=== PATIENT | female | born 1950 | race Caucasian/White ===

== ENCOUNTER 2021-09-24 13:46 | Day surgery (SDC) | payer OTHER ==
[2021-09-21 11:41] LABS: Absolute Lymphocytes (CBC) 1.4 K/uL (0.7-4.9); Basophils % 0.8 % (0-1.3); Hematocrit 38.1 % (36.0-45.0); Lymphocytes % 19.7 % (15.3-44.8); MPV 6.9 fL (7.6-11.3); RBC Red Blood Cell Count 4.18 M/uL (3.86-4.86)
[2021-09-21 11:50] LABS: Protime INR 1.04
[2021-09-21 11:55] LABS: Potassium 4.1 mmol/L (3.5-5.1)
--- NOTE | 2021-09-21 11:59 | RAD REPORT ---
EXAM DESCRIPTION: Jesús Bourgeois And Sammie (2 Views)09/21/2021 11:50 am CLINICAL HISTORY: Preop for cardiac catheterization. Hypertension COMPARISON: None FINDINGS: The lungs are mildly hyperaerated. The lungs appear clear of acute infiltrate. The heart is normal size IMPRESSION: No acute abnormalities displayed
[~2021-09-24 13:46] MED LIST: NA CHLORIDE 0.9% 500 ML ONE
[2021-09-24] MEDS ORDERED: HEPA 1000U/500MLS 2,000 UNIT/1,000 ML BAG IV ONE (13:57)
[2021-09-24] MEDS ORDERED: MIDAZOLAM HCL 2 MG/2 ML INJ ONE (15:21)
[2021-09-24] MEDS ORDERED: HEPARIN 5000 UNIT/ML 1 ML VIAL ONE (15:22)
[2021-09-24] MEDS ORDERED: FENTANYL CITR 100 MCG/2 ML ONE (15:22)
[2021-09-24] MEDS ORDERED: VERAPAMIL HCL 10 MG/4 ML VIAL IV ONE (15:22)
[2021-09-24] MEDS ORDERED: ATROPINE SULF 1 MG/10 ML SYR IV ONE (15:22)
[2021-09-24] MEDS ORDERED: NITROGLYCERIN 100 MCG/ML SYR (for cath lab use only) IV ONE (15:22)
[2021-09-24] MEDS ORDERED: CLOPIDOGREL 75 MG TABLET ONE (15:49)
[2021-09-24] MEDS ORDERED: NITROGLYCERIN 0.4 MG/TAB SL ONE (16:35)
[2021-09-24] MEDS ORDERED: ONDANSETRON 4 MG/2 ML VIAL ONE (16:53)
[2021-09-24] MEDS ORDERED: NA CHLORIDE 0.9% 500 ML ONE (16:54)
[2021-09-24] MEDS ORDERED: NA CHLORIDE 0.9% 500 ML IV ONE (17:05)
[2021-09-24 20:56] VITALS: BP 108/54; O2SAT 98
--- NOTE | 2021-09-25 03:18 | OP ---
Date of Procedure: 09/24/2021 Surgeon: JOSUE JOYA Procedures Performed: 1.Selective coronary angiogram. 2.Left heart catheterization. 3.Percutaneous coronary intervention of severe mid left anterior descending disease using 3.0 x 24 m m Synergy drug-eluting stent overlapped distally with another stent 2.75 x 12 mm due to edge dissecti on. Indication: Unstable angina. Access: Radial artery 6-Kazakh, closed with TR band. Complications: None. Bleeding: Less than 20 mL. Total Contrast: 95 mL. Description Of Procedure: After risks, benefits, and alternatives were explained, the patient agreed to proceed and signed informed consent. The patient was brought in the cardiac catheterization [facility], prepped and draped in usual sterile fashion. Then, we accessed right radial artery using ped iatric micropuncture kit, placed a 6-Kazakh slender sheath. Took 5-Kazakh [place] 4.0 catheter into th e aortic root, engaged left main, right coronary artery, took standard views, and catheter was pushed across the aortic valve and obtained the LVEDP and pullback did not record gradient. Then, I took a 6-Kazakh EBU 3.5 guide into the aortic root, gave systemic heparin to assure ST level above 250. Sh e was loaded with 600 mg of Plavix. She had aspirin this morning. Took a short run-through wire int o the left main then the LAD, crossed the stenosis. The mid LAD was pre-dilated using a 3 .0 x 50 mm noncompliant balloon and then 3.0 x 20 mm compliant balloon to high pressure, lesion expan ded very well and placed 3.0 x 24 mm Synergy drug-eluting stent followed by 2.7 x 12 mm distally due to edge dissection and overlap was post dilated. Final angiogram was excellent with 0% residual rest enosis and KAVYA-3 flow. Removed the wire and the guide and removed the sheath and placed TR band wit h good hemostasis. Findings: 1.Left main is normal, long. 2.LAD; proximal is normal. Mid diffuse severely diseased 80% to 90%, status post successful PCI as above. Then, the distal LAD is normal. Diagonal branch with luminal irregularities. 3.Left circumflex is small and normal. 4.RCA; large and dominant with luminal irregularities. Conclusion: Severe mid LAD stenosis, status post successful PCI as above. Plan: Aspirin, Plavix, and statin. Follow up in the office in 2 weeks. SR/MODL Voice ID: [id number] Report ID: [id number]
== END 2021-09-24 20:15 | disposition home or self-care (01) ==
LOC: CCL 13:46
PROVIDERS: ATTEND Internal Medicine
DX: I25.110 Atherosclerotic heart disease of native coronary artery with unstable angina pectoris (principal); I10 Essential (primary) hypertension; H40.9 Unspecified glaucoma; K21.9 Gastro-esophageal reflux disease without esophagitis; M81.0 Age-related osteoporosis without current pathological fracture; Z88.3 Allergy status to other anti-infective agents; Z88.8 Allergy status to other drugs, medicaments and biological substances; Z20.822 Contact with and (suspected) exposure to COVID-19
CPT/HCPCS: 93005; 85025; 80048; 36415; 85610; 85347 ×2; 85730; 71046; 93458; U0002; C1893; C1725; C9600; J1644 ×2; J2250; J3010; J7040 ×2; J2405

== ENCOUNTER 2022-01-25 10:40 | Day surgery (SDC) | payer OTHER ==
[2022-01-20 14:13] LABS: Absolute Lymphocytes (CBC) 1.6 K/uL (0.7-4.9); Hematocrit 38.2 % (36.0-45.0); Lymphocytes % 20.4 % (15.3-44.8); MPV 6.7 fL (7.6-11.3); RBC Red Blood Cell Count 4.25 M/uL (3.86-4.86)
[2022-01-20 14:29] LABS: Potassium 4.3 mmol/L (3.5-5.1)
[2022-01-20 14:34] LABS: Protime INR 1.05
[2022-01-25] MEDS ORDERED: ASPIRIN 325 MG TAB ONE (10:43)
[2022-01-25] MEDS ORDERED: HEPARIN 5000 UNIT/ML 1 ML VIAL ONE (10:43)
[2022-01-25] MEDS ORDERED: HEPARIN 10,000 UNIT/10 ML VIAL IV ONE (10:43)
[2022-01-25] MEDS ORDERED: VERAPAMIL HCL 10 MG/4 ML VIAL IV ONE (10:43)
[2022-01-25] MEDS ORDERED: CLOPIDOGREL 75 MG TABLET ONE (10:43)
[2022-01-25] MEDS ORDERED: TICAGRELOR 90 MG TABLET PO ONE (10:44)
[2022-01-25] MEDS ORDERED: ATROPINE SULF 1 MG/10 ML SYR IV ONE (10:45)
[2022-01-25] MEDS ORDERED: NA CHLORIDE 0.9% 500 ML ONE (11:05)
[2022-01-25] MEDS ORDERED: FENTANYL CITR 100 MCG/2 ML ONE (11:05)
[2022-01-25] MEDS ORDERED: MIDAZOLAM HCL 2 MG/2 ML INJ ONE (11:06)
[2022-01-25 14:54] VITALS: BP 108/43; O2SAT 99
--- NOTE | 2022-01-26 00:24 | OP ---
Date of Procedure: 01/25/2022 Surgeon: JOSUE JOYA Procedure Performed: Selective coronary angiogram. Access: Right radial artery 6-Nigerien, closed with TR band. Indication: Unstable angina with known history of coronary artery disease. Complications: None. Anesthesia: Total sedation time was 20 minutes. Description Of Procedure: After risks, benefits, and alternatives were explained, the patient agreed to proceed and signed informed consent. The patient was brought into the cardiac catheterization la boratory, prepped and draped in usual sterile fashion. Then, we accessed right radial artery using p [employer] [place] micropuncture kit and placed a 6-Nigerien slender sheath and then I took a 5-[place] 4.0 catheter into the aortic root, engaged left main. Right coronary artery took standard views and then removed the catheter and sheath, placed TR band with good hemostasis. Findings: 1.Left main, large and normal. 2.LAD, large vessel with proximal 2 mid widely patent stents, no in-stent restenosis, normal diagona l branches. 3.Left circumflex, normal. 4.RCA, calcified with luminal irregularities with no significant disease. Conclusion: 1.Widely patent LAD stent. Noncardiac chest pain. 2.No significant coronary artery disease otherwise. Plan: Continue medical management. SR/MODL Voice ID: [id number] Report ID: [id number]
== END 2022-01-25 15:20 | disposition home or self-care (01) ==
LOC: CCL 10:40
PROVIDERS: ATTEND Internal Medicine
DX: R07.89 Other chest pain (principal); I25.10 Atherosclerotic heart disease of native coronary artery without angina pectoris; I10 Essential (primary) hypertension; E78.5 Hyperlipidemia, unspecified; Z01.810 Encounter for preprocedural cardiovascular examination; Z95.5 Presence of coronary angioplasty implant and graft; Z88.3 Allergy status to other anti-infective agents; Z88.8 Allergy status to other drugs, medicaments and biological substances; Z20.822 Contact with and (suspected) exposure to COVID-19; Z82.49 Family history of ischemic heart disease and other diseases of the circulatory system
CPT/HCPCS: 85025; 80048; 36415; 85610; 85730; 93454; U0003; C1893; J1644; J2250; J3010; J7040